=== PATIENT | male | born 1935 | race Caucasian/White ===

== ENCOUNTER 2018-10-04 18:25 | Inpatient (IN) | payer MEDICARE ==
[~2018-10-04] VITALS: Ht 172.7 cm; Wt 98.4 kg
[~2018-10-04 18:25] MED LIST: CARB50 PO; CEFU500 PO; HYDPAM50 PO; LEVFLO500 PO; OMEP20ER PO; PROM25 PO
[2018-10-04] MEDS ORDERED: ALEN70 PO (18:42)
[2018-10-04] MEDS ORDERED: ALBU90OI6 INH (18:42)
[2018-10-04] MEDS ORDERED: Calcium Carbon650 MG PO (18:43)
[2018-10-04] MEDS ORDERED: Zantac150 MG PO (18:44)
[2018-10-04] MEDS ORDERED: FERRO-TIME325 MG PO (18:44)
[2018-10-04] MEDS ORDERED: TAMS.4ER PO (18:45)
[2018-10-04] MEDS ORDERED: WARF5 PO (18:46)
[2018-10-04] MEDS ORDERED: Vitamin D400 UNI2 PO (20:38)
[2018-10-04] MEDS ORDERED: Chest Congesti400 MG PO (20:39)
[2018-10-04] MEDS ORDERED: THERA1 EACH PO (20:39)
[2018-10-04 22:19] LABS: BASOPHILS PERCENT AUTO 0 % (0-2); EOSINOPHILS PERCENT AUTO 0 % (0-6); Hematocrit 37.2 % (37.0-53.0); Hemoglobin 11.5 g/dL (13.5-17.5); IMMATURE GRAN ABSOLUTE AUTO 0.03 K/mm3 (0.00-0.10); IMMATURE GRAN PERCENT AUTO 1 % (0-1); LYMPHOCYTES ABSOLUTE AUTO 0.22 K/mm3 (0.84-5.20); LYMPHOCYTES PERCENT AUTO 5 % (21-46); MONOCYTES ABSOLUTE AUTO 0.07 K/mm3 (0.16-1.47); MONOCYTES PERCENT AUTO 2 % (4-13); Mean Corpuscular HGB 29.4 pg (26.0-34.0); Mean Corpuscular HGB Conc 30.9 g/dL (31.5-36.5); Mean Corpuscular Volume 95 fL (80-100); Mean Platelet Volume 10.1 fL (9.1-12.4); NEUTROPHILS ABSOLUTE AUTO 4.49 K/mm3 (1.96-9.15); NEUTROPHILS PERCENT AUTO 93 % (41-73); Platelet Count 204 K/mm3 (150-400); RDW Coefficient Variation 14.2 % (11.7-14.2); RDW Standard Deviation 49.9 fL (35.1-46.3); Red Blood Cell Count 3.91 M/mm3 (4.30-5.90); White Blood Cell Count 4.81 K/mm3 (4.00-11.30)
[2018-10-04 22:29] LABS: Prothrombin Time Results 69.3 Sec (9.7-11.5)
[2018-10-04 22:35] LABS: International Normalized Ratio 7.89
[2018-10-04 22:48] LABS: Alanine Aminotransfer (ALT/SGP 18 U/L (12-78); Albumin, Blood 2.7 g/dL (3.4-5.0); Albumin/Globulin Ratio 0.7 (0.8-1.8); Alk Phos 80 U/L (50-136); Anion Gap 6 mmol/L (6-16); Aspartate Aminotrans (AST/SGOT 15 U/L (12-37); Bilirubin, Total 0.2 mg/dL (0.1-1.0); Blood Urea Nitrogen 23 mg/dL (8-24); Bun/Creatinine Ratio 21.5 (12.0-20.0); CO2, Blood 27 mmol/L (21-32); Calcium, Blood 10.9 mg/dL (8.5-10.1); Chloride, Blood 104 mmol/L (98-108); Creatinine, Blood 1.07 mg/dL (0.60-1.20); Glomerular Filtration Rate >60 (60-); Glucose, Blood 233 mg/dL (70-99); Magnesium, Blood 2.2 mg/dL (1.6-2.4); Potassium, Blood 4.8 mmol/L (3.5-5.5); Sodium, Blood 137 mmol/L (136-145); Total Protein, Blood 6.7 g/dL (6.4-8.2)
--- NOTE | 2018-10-04 23:16 | NUR ---
PATIENT IS A NEW ADMIT FROM THE ED. THREE PERSON TRANSFER FROM [facility] TO BED. PATIENT ON 2L O2 NC AND BASELINE AT NIGHT. SOB W/EXERTION. PATIENT AND FAMILY ORIENTED TO ROOM AND CALL LIGHT SYSTEM. 1-2 PERSON ASSIST STAND PIVOT. [place] BILATERAL HEARING AIDS. CALL LIGHT IN REACH. WILL CONTINUE TO MONITOR.
--- NOTE | 2018-10-04 23:23 | NUR ---
CRITICAL VALUE NOTICE OF cH INR 7.89. HOSPITALIST MARVIN PURDY NOTIFIED AND REPORTS [facility] IN MORNING.
--- NOTE | 2018-10-04 23:43 | NUR ---
LAB CALLED AND VERIFIED PATIENT WILL HAVE PROTHROMBIN TIME LAB IN MORNING FOR REPEAT INR.
--- NOTE | 2018-10-05 01:49 | NUR ---
PROVIDER CONSULT CALLED IN TO ONCOLOGY ANSWERING SERVICE. ANSWERING SERVICE REPORTS HOSPITALIST MARVIN PURDY NEEDS TO REQUEST A SPECIFIC DR BECAUSE THEY DON'T HAVE ANYONE ELECTRICAL CONTROL ASSEMBLER. SCALE EXPERT REPORTS TO HAVE DAY RN CALL CONSULT BACK WITH A SPECIFIC DR.
--- NOTE | 2018-10-05 04:03 | NUR ---
SHIFT SUMMARY PATIENT HAD NO ACUTE CHANGES OBSERVED THIS SHIFT. AXO X3 AND ONE ASSIST TO BR. USES URINAL AT BEDSIDE. BREATHING IMPROVING AND LESS SOB W/EXERTION. [place] WITH BILATERAL HEARING AIDS. PIV REMAINS INTACT. NS INFUSING AT 200 mL/HR X TWO BAGS. SOLU-MEDROL PER EMAR. REPORTS L RIB FX AND TORADOL GIVEN X ONE ON ADMIT WITH GAUFENISEN X ONE FOR COUGH. ON 2L O2 NC BASELINE FOR NIGHT. ONCOLOGY CONSULT ANSWERING SERVICE REPORTS FOR DAY RN TO CALL BACK WITH SPECIFIC DR SINCE NONE ARE BOND BROKER. CRITICAL LAB INR 7.89 AND HOSPITALIST [facility] RECRUITING COORDINATOR REPORTS TO RECHECK ON MORNING LABS. VSS/AFEBRILE. CALL LIGHT IN REACH. BED IN LOWEST POSITION. WILL CONTINUE TO MONITOR UNTIL DAY SHIFT NURSE ASSUMES CARE.
--- NOTE | 2018-10-05 04:52 | NUR ---
CONTINUOUS PULSE OXIMETRY SETUP BY RT WITH RIGHT EAR LOBE PROBE. STATING 92-93% ON 2L O2 NC.
[2018-10-05 05:39] LABS: Hematocrit 32.4 % (37.0-53.0); Mean Corpuscular HGB 28.9 pg (26.0-34.0); Mean Corpuscular HGB Conc 30.9 g/dL (31.5-36.5); Mean Corpuscular Volume 94 fL (80-100); Mean Platelet Volume 9.5 fL (9.1-12.4); Platelet Count 167 K/mm3 (150-400); RDW Coefficient Variation 13.7 % (11.7-14.2); RDW Standard Deviation 46.4 fL (35.1-46.3); Red Blood Cell Count 3.46 M/mm3 (4.30-5.90)
[2018-10-05 06:04] LABS: Prothrombin Time Results 63.8 Sec (9.7-11.5)
[2018-10-05 06:06] LABS: International Normalized Ratio 7.2
[2018-10-05 06:12] LABS: Alanine Aminotransfer (ALT/SGP 17 U/L (12-78); Albumin, Blood 2.4 g/dL (3.4-5.0); Albumin/Globulin Ratio 0.7 (0.8-1.8); Alk Phos 66 U/L (50-136); Anion Gap 4 mmol/L (6-16); Aspartate Aminotrans (AST/SGOT 10 U/L (12-37); Bilirubin, Total 0.3 mg/dL (0.1-1.0); Blood Urea Nitrogen 32 mg/dL (8-24); Bun/Creatinine Ratio 31.7 (12.0-20.0); CO2, Blood 26 mmol/L (21-32); Calcium, Blood 10.7 mg/dL (8.5-10.1); Chloride, Blood 109 mmol/L (98-108); Creatinine, Blood 1.01 mg/dL (0.60-1.20); Globulin, Blood 3.5 g/dL (2.2-4.0); Glomerular Filtration Rate >60 (60-); Glucose, Blood 136 mg/dL (70-99); Potassium, Blood 5.5 mmol/L (3.5-5.5); Sodium, Blood 139 mmol/L (136-145); Total Protein, Blood 5.9 g/dL (6.4-8.2)
[2018-10-05 11:18] LABS: Source, Urine Clean Catch
--- NOTE | 2018-10-05 11:21 | NUR ---
CALLED HOSPITALIST CALLED TO CLARIFY WHICH DOCTOR TO CALL FOR ONCOLOGY CONSULT FOR PT'S LUNG MASS. ORDER FOR CONSULT IS UNCLEAR AND DOES NOT SPECIFY. LEFT MESSAGE WITH HOSPITALIST.
[2018-10-05 11:23] LABS: Bilirubin, Urine Neg (Neg); Blood, Urine Neg (Neg); Glucose Qualitative, Urine 2+ (Neg); Ketones, Urine Neg (Neg); Leukocyte Esterase, Urine Neg (Neg); Nitrite, Urine Neg (Neg); Protein, Urine Neg (Neg); Specific Gravity, Urine 1.015 (1.003-1.022); Urobilinogen, Urine NORM (Normal)
[2018-10-05 11:30] LABS: Appearance, Urine Clear (Clear); Color, Urine Yellow (P-Yellow)
--- NOTE | 2018-10-05 18:28 | NUR ---
SHIFT SUMMARY 83 YR OLD FEMALE ADMITTED FOR COPD EXACERBATION. FULL CODE. USES O2 @ NIGHT AT BASELINE. 2 LPM HERE 24 HRS/DAY. 1 STANDBY ASSIST TO BATHROOM. A&O X4. TAKES MEDS WHOLE. POINT LAY [place], HEARING AIDS X2. LUNGS-WHEEZY. POSSIBLE LEFT RIB FX FROM COUGHING. SOB W/EXERTION. TWO IVS: RT AC AND RT FOREARM. REGULAR DIET. SCD'S FOR DVT PREVENTION. LEFT UPPER LOBE MASS DETECTED IN LUNG, POSSIBLE CANCER. HX: BPH, COPD, DVT. LIVES @ HOME ALONE, BUT FAMILY LIVES CLOSE. MOTTLED LEGS. CONTINUOUS PULSE OX IS HOOKED UP TO PT'S EAR. URINALYSIS WAS SENT TO LAB TODAY.
--- NOTE | 2018-10-06 03:00 | NUR ---
PATIENT FRIENDS WOKE HIM UP AND TALKING IN ROOM FOR CLOSE TO THREE HOURS WITH HIM REPORTING THEY WORK LATE SHIFTS.
--- NOTE | 2018-10-06 03:51 | NUR ---
SHIFT SUMMARY PATIENT HAD NO ACUTE CHANGES OBSERVED THIS SHIFT. AXOX 3 AND SBA TO BR. PIV REMAINS INTACT. ON 3L O2 NC AND 2L BASELINE. [place] WITH BILATERAL HEARING AIDS IN ON DAYS. ON CONTINUOUS PULSE OXIMETRY WITH PROBE ON RIGHT EAR LOBE. VSS/AFEBRILE. DENIES PAIN, SOB, AND N/V. SOLU-MEDROL GIVEN PER EMAR. CALL LIGHT IN REACH. BED IN LOWEST POSITION. WILL CONTINUE TO MONITOR UNTIL DAY SHIFT NURSE ASSUMES CARE.
[2018-10-06 05:39] LABS: BASOPHILS PERCENT AUTO 0 % (0-2); EOSINOPHILS PERCENT AUTO 0 % (0-6); Hematocrit 31.4 % (37.0-53.0); Hemoglobin 9.7 g/dL (13.5-17.5); IMMATURE GRAN ABSOLUTE AUTO 0.05 K/mm3 (0.00-0.10); IMMATURE GRAN PERCENT AUTO 1 % (0-1); LYMPHOCYTES ABSOLUTE AUTO 0.33 K/mm3 (0.84-5.20); LYMPHOCYTES PERCENT AUTO 4 % (21-46); MONOCYTES ABSOLUTE AUTO 0.23 K/mm3 (0.16-1.47); MONOCYTES PERCENT AUTO 3 % (4-13); Mean Corpuscular HGB 29.1 pg (26.0-34.0); Mean Corpuscular HGB Conc 30.9 g/dL (31.5-36.5); Mean Corpuscular Volume 94 fL (80-100); Mean Platelet Volume 9.5 fL (9.1-12.4); NEUTROPHILS ABSOLUTE AUTO 7.92 K/mm3 (1.96-9.15); NEUTROPHILS PERCENT AUTO 93 % (41-73); Platelet Count 187 K/mm3 (150-400); RDW Coefficient Variation 13.6 % (11.7-14.2); RDW Standard Deviation 46.5 fL (35.1-46.3); Red Blood Cell Count 3.33 M/mm3 (4.30-5.90); White Blood Cell Count 8.53 K/mm3 (4.00-11.30)
[2018-10-06 05:55] LABS: International Normalized Ratio 1.92; Prothrombin Time Results 19.2 Sec (9.7-11.5)
[2018-10-06 06:00] LABS: Anion Gap 3 mmol/L (6-16); Blood Urea Nitrogen 46 mg/dL (8-24); CO2, Blood 27 mmol/L (21-32); Calcium, Blood 10.7 mg/dL (8.5-10.1); Chloride, Blood 109 mmol/L (98-108); Glomerular Filtration Rate >60 (60-); Glucose, Blood 140 mg/dL (70-99); Sodium, Blood 139 mmol/L (136-145)
--- NOTE | 2018-10-06 19:18 | NUR ---
SHIFT SUMMARY: NO ACUTE CHANGES TO REPORT THIS SHIFT. PT A&O; [place]-BILATERAL HEARING AIDS; CALM AND COOPERATIVE WITH CARE. NO C/O PAIN THIS SHIFT. 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 REPORT GIVEN TO ONCOMING RN.
[2018-10-07 05:41] LABS: BASOPHILS ABSOLUTE AUTO 0.01 K/mm3 (0.00-0.23); BASOPHILS PERCENT AUTO 0 % (0-2); EOSINOPHILS PERCENT AUTO 0 % (0-6); Hematocrit 29.9 % (37.0-53.0); Hemoglobin 9.2 g/dL (13.5-17.5); IMMATURE GRAN ABSOLUTE AUTO 0.09 K/mm3 (0.00-0.10); IMMATURE GRAN PERCENT AUTO 1 % (0-1); LYMPHOCYTES ABSOLUTE AUTO 0.34 K/mm3 (0.84-5.20); LYMPHOCYTES PERCENT AUTO 3 % (21-46); MONOCYTES ABSOLUTE AUTO 0.31 K/mm3 (0.16-1.47); MONOCYTES PERCENT AUTO 3 % (4-13); Mean Corpuscular HGB 29.5 pg (26.0-34.0); Mean Corpuscular HGB Conc 30.8 g/dL (31.5-36.5); Mean Corpuscular Volume 96 fL (80-100); Mean Platelet Volume 9.4 fL (9.1-12.4); NEUTROPHILS ABSOLUTE AUTO 9.46 K/mm3 (1.96-9.15); NEUTROPHILS PERCENT AUTO 93 % (41-73); Platelet Count 181 K/mm3 (150-400); RDW Coefficient Variation 14.3 % (11.7-14.2); RDW Standard Deviation 49.7 fL (35.1-46.3); Red Blood Cell Count 3.12 M/mm3 (4.30-5.90); White Blood Cell Count 10.21 K/mm3 (4.00-11.30)
[2018-10-07 05:51] LABS: International Normalized Ratio 1.24; Prothrombin Time Results 12.9 Sec (9.7-11.5)
--- NOTE | 2018-10-07 06:02 | NUR ---
SHIFT SUMMARY NO ACUTE CHANGES THIS SHIFT. PT CONTINUES TO BE SOB W/ EXERTION. PT REPORTS THAT THIS IS HIS BASELINE. PT REPORTS SOME PAIN W/ COUGHING BUT DENIES ANY NEED FOR PAIN MEDICATION. AMBULATED EASILY TO THE RESTROOM WITH ONE PERSON ASSIST. GOOD OUTPUT. 2 L O2 NC. VSS. PT RESTING WELL AT THIS TIME.
--- NOTE | 2018-10-07 06:12 | NUR ---
SHIFT SUMMARY PT NEW ED ADMIT THIS EVENING. PT OVERALL FEELING VERY ILL. LUNG SOUNDS COARSE WITH SOME RHON[place] IN BASES. PLACED ON 2 L O2 NC TO KEEP O2 SATS GREATER THAN 90%. COUGH SYRUP GIVEN X 2 THIS SHIFT. NAGGING MOIST COUGH WITH THICK GREEN SPUTUM. SAMPLE SENT TO LAB. PT WITH LOW GRADE FEVER 99.2 AND HAVING CHILLS. MEDICATED X 1 W/ 650 MG TYLENOL. VSS. WILL CONTINUE TO MONITOR.
[2018-10-07 06:18] LABS: Albumin, Blood 2.3 g/dL (3.4-5.0); Anion Gap 2 mmol/L (6-16); Blood Urea Nitrogen 53 mg/dL (8-24); Bun/Creatinine Ratio 51.5 (12.0-20.0); CO2, Blood 28 mmol/L (21-32); Calcium, Blood 10.8 mg/dL (8.5-10.1); Chloride, Blood 110 mmol/L (98-108); Creatinine, Blood 1.03 mg/dL (0.60-1.20); Glomerular Filtration Rate >60 (60-); Glucose, Blood 147 mg/dL (70-99); Phosphorus, Blood 2.5 mg/dL (2.5-4.9); Potassium, Blood 5.5 mmol/L (3.5-5.5); Sodium, Blood 140 mmol/L (136-145)
[2018-10-07] MEDS ORDERED: PRED10 PO (11:22)
--- NOTE | 2018-10-07 12:20 | NUR ---
PT/FAMILY REPORTS THE PATIENT ONLY USES O2 AT NIGHT AT HOME, TITRATE PT TO RA, SAT 87-88%. NOTIIFED DR ISBELL, NEW ORDER FOR HOME O2 EVALUATION. WILL CONTINUE TO MONITOR
--- NOTE | 2018-10-07 17:37 | NUR ---
SHIFT SUMMARY PT A&OX3. [place]. CALM AND COOPERATIVE WITH CARE. PT RESTING IN BED DURING SHIFT. UP WITH 1 PERSON ASSIT. PT REPORTS PAIN WITH COUGH, DENIES NEED FOR MEDICATIONS. PT SOB WITH EXERTION, ON 2L O2 VIA NC, >90%. PT WEAR 2L O2 VIA NC AT NIGHT AT HOME, NEW HOME O2 EVALUATION ORDERED AND ORDERS FOR INCREASED NEED SEND [facility]. FAMILY WAS ABLE TO GO TO [facility] AND NURSING PROGRAM COORDINATOR PORTABLE O2. PT DENIES N/V DURING SHIFT. PT RECEIVING IV STEROIDS THIS AM AND BREATHING TREATMENTS PER RT. O2 SAT DIPPED 87-88 ON RA, >90% ON 2L02. OTHER VSS. NO OTHER ACUTE CHANGES NOTED DURING SHIFT. PT AND DAUGHTER EDUCATED ON DISCHARGE INSTRUCTIONS, O2 THERAPY, MEDICATIONS AND FOLLOW UP APPOINTMENT TO GET RESULTS OF THE BIOPSY. PT LEFT ROOM VIA WHEELCHAIR AT 1729. PT STABLE UPON DISCHARNGE.
== END 2018-10-07 17:48 | disposition home or self-care (01) | DRG 166 ==
LOC: ER 18:25 → MEDS 20:50 → ENPENDDIS 10-07 10:56 → MEDS 10-07 17:48
PROVIDERS: Internal Medicine; Nurse Practitioner Acute Care; Pharmacist; ADMIT Internal Medicine
PROC: 0PB13ZX Excision of 1 to 2 Ribs, Percutaneous Approach, Diagnostic (ICD-10-PCS; principal; 2018-10-06)
DX: J43.9 Emphysema, unspecified (principal); J96.01 Acute respiratory failure with hypoxia; M84.48XA Pathological fracture, other site, initial encounter for fracture; R91.8 Other nonspecific abnormal finding of lung field; E21.3 Hyperparathyroidism, unspecified; E21.0 Primary hyperparathyroidism; F17.228 Nicotine dependence, chewing tobacco, with other nicotine-induced disorders; N40.0 Benign prostatic hyperplasia without lower urinary tract symptoms; D50.9 Iron deficiency anemia, unspecified; Z99.81 Dependence on supplemental oxygen; M81.0 Age-related osteoporosis without current pathological fracture; Z79.01 Long term (current) use of anticoagulants
CPT/HCPCS: 21550; 36415; 71260; 77012; 80048; 80053; 80069; 81003; 82330; 83735; 83880; 84484; 85025; 85027; 85610; 93005; 93010; 94640; 94760; 94761; 99285-25; J1885; J2930; J3430; J7030; Q9967